=== PATIENT | male | born 1945 | race African-American/Black ===

== ENCOUNTER 2021-11-11 20:38 | Emergency (ER) | payer MEDICARE ==
[2021-11-11] MEDS ORDERED: IPRATROPIUM/ALBUTEROL SULFATE 3 ML AMPUL.NEB IH ONE (20:49)
[2021-11-11] MEDS ORDERED: ALBUTEROL 2.5 MG/3 ML NEBU IH STA (21:30)
[2021-11-11] MEDS ORDERED: IPRATROPIUM 0.02% NEBU 2.5 ML IH STA (21:30)
[2021-11-11] MEDS ORDERED: methylPREDNISolone Sod Succinate 125 MG/2 ML INJ IV ONE (21:32)
--- NOTE | 2021-11-11 21:37 | Emergency Department Report ---
ED General Adult HPI - General Chief complaint: Dyspnea/Respdistress Stated complaint: COPD EXACERBATION Time Seen by Provider: 11/11/21 21:25 Source: patient, family (daughter) Mode of arrival: Wheelchair Limitations: No Limitations - History of Present Illness Initial comments: Patient presents with complaints of SOB @ rest and on exertion x 3 days. E ndorses PND. Denies orthopnea, chest pain, palpitations, diaphoresis, leg swelling, pain in his calves, recent travel, immobilization, surgery, hospitalization, sex HRT use. Has a hx of COPD. Is not on home O2. - Related Data Previous Rx's Medication Instructions Recorded Last Taken Type Albuterol Mdi (or & Nicu Only) 2 puff IH QID PRN #1 inhalation 12/13/15 Unknown Rx [ProAir HFA Inhaler] Benzonatate [Tessalon Perles] 100 mg PO Q8HR #20 capsule 12/13/15 Unknown Rx predniSONE [Deltasone] 20 mg PO BID #10 tab 12/13/15 Unknown Rx Albuterol Sulfate [Proair 90 mcg IH Q4HR PRN #2 aer.pow.ba 09/10/16 Unknown Rx Respiclick] Benzonatate [Tessalon Perles] 100 mg PO Q8HR PRN #30 capsule 09/10/16 Unknown Rx Ipratropium [place] [Atrovent Hfa] 12.9 gm IH Q4HR #2 hfa.aer.ad 09/10/16 Unknown Rx predniSONE [Deltasone] 2 tab PO QDAY 5 Days #10 tab 11/12/21 Unknown Rx Allergies Allergy/AdvReac Type Severity Reaction Status Date / Time No Known Allergies Allergy Verified 12/12/15 21:19 ED Review of Systems ROS: Stated complaint: COPD EXACERBATION Other details as noted in HPI Comment: All other systems reviewed and negative Constitutional: denies: chills, fever ED Past Medical Hx - Past Medical History Hx Hypertension: Yes Hx COPD: Yes Additional medical history: Cholestrol - Social History Smoking Status: Current Every Day Smoker Substance Use Type: Alcohol - Medications Home Medications: Home Medications Medication Instructions Recorded Confirmed Last Taken Type Albuterol Mdi (or & Nicu Only) 2 puff IH QID PRN #1 inhalation 12/13/15 Unknown Rx [ProAir HFA Inhaler] Benzonatate [Tessalon Perles] 100 mg PO Q8HR #20 capsule 12/13/15 Unknown Rx predniSONE [Deltasone] 20 mg PO BID #10 tab 12/13/15 Unknown Rx Albuterol Sulfate [Proair 90 mcg IH Q4HR PRN #2 aer.pow.ba 09/10/16 Unknown Rx Respiclick] Benzonatate [Tessalon Perles] 100 mg PO Q8HR PRN #30 capsule 09/10/16 Unknown Rx Ipratropium [place] [Atrovent Hfa] 12.9 gm IH Q4HR #2 hfa.aer.ad 09/10/16 Unknown Rx predniSONE [Deltasone] 2 tab PO QDAY 5 Days #10 tab 11/12/21 Unknown Rx ED Physical Exam - General Limitations: Language Barrier (daughter interpreting) General appearance: alert, in no apparent distress - Head Head exam: Present: atraumatic, normocephalic - Eye Eye exam: Present: PERRL, EOMI - ENT ENT exam: Present: mucous membranes moist, other (airway patent) - Neck Neck exam: Present: other (supple; no JVD) - Respiratory Respiratory exam: Present: other (fair air entry, prolonged expiratory phase, diffuse inspiratory and expiratory wheezes, no use of GIRMA) - Cardiovascular Cardiovascular Exam: Present: regular rate. Absent: rubs, gallop - GI/Abdominal GI/Abdominal exam: Present: soft, normal bowel sounds. Absent: distended, tenderness - Extremities Exam Extremities exam: Present: other (no lower extremity edema; non tender calves; neg Jorge's sign bilaterally) - Back Exam Back exam: Present: full ROM. Absent: tenderness - Neurological Exam Neurological exam: Present: alert, oriented X3, CN II-XII intact. Absent: motor sensory deficit - Skin Skin exam: Present: warm, normal color ED Course Vital Signs 11/11/21 11/12/21 11/12/21 20:42 00:57 01:06 Temperature 97.7 F 97.8 F Pulse Rate 108 H 90 87 Respiratory 20 16 17 Rate Blood Pressure 153/80 Blood Pressure 116/57 [Left] O2 Sat by Pulse 95 99 98 Oximetry 11/12/21 11/12/21 11/12/21 01:15 01:31 01:45 Temperature Pulse Rate 84 86 94 H Respiratory 16 15 19 Rate Blood Pressure 111/58 115/54 126/76 Blood Pressure [Left] O2 Sat by Pulse 98 99 95 Oximetry 11/12/21 11/12/21 11/12/21 02:01 02:16 02:23 Temperature 97.8 F Pulse Rate 98 H 98 H Respiratory 16 12 Rate Blood Pressure 113/57 Blood Pressure 134/59 [Left] O2 Sat by Pulse 91 93 95 Oximetry ED Medical Decision Making - Lab Data Result diagrams: 11/11/21 21:59 11/11/21 21:59 Laboratory Tests 11/11/21 11/11/21 21:59 21:59 WBC 8.9 RBC 4.95 Hgb 14.6 Hct 43.8 MCV 88 MCH 29 MCHC 33 RDW 14.4 Plt Count 324 Lymph % (Auto) 23.6 [place] % (Auto) 9.4 H Eos % (Auto) 8.9 H Baso % (Auto) 0.5 Lymph # (Auto) 2.1 [place] # (Auto) 0.8 Eos # (Auto) 0.8 H Baso # (Auto) 0.0 Seg Neutrophils % 57.6 Seg Neutrophils # 5.1 Sodium 133 L Potassium 4.4 Chloride 97.3 L Carbon Dioxide 21 L Anion Gap 19 BUN 23 H Creatinine 1.3 Estimated GFR 54 BUN/Creatinine Ratio 18 Glucose 110 H Calcium 9.1 Total Bilirubin 0.30 AST 29 ALT 23 Alkaline Phosphatase 79 Troponin T < 0.010 NT-Pro-B Natriuret Pep 43.38 Total Protein 7.2 Albumin 4.7 Albumin/Globulin Ratio 1.9 CXR: no acute cardiopulmonary process EKG: HR 84, SR, nml DE, narrow QRS, no significant ST deflections from isoelectric liune in contiguous leads - Medical Decision Making Diff dz: likely 2/2 COPD exacerbation. Pneumonia, pneumothorax ruled out. ACS, PE unlikely. Unable to r/o COVID-19 as testing is not done at this faciulity overnight (not even swabs collected) per ancillary staff. Received solumedrol 125 mg IV x 1,. albuterol 10mg neb x 1, ipratropium 1 mg neb x 1. Lungs with good air entry, nml I:E, CTAB, no use of GIRMA; RR 18; POx 98% on RA. Critical care attestation.: If time is entered above; I have spent that time in minutes in the direct care of this critically ill patient, excluding procedure time. ED Disposition Clinical Impression: COPD exacerbation Disposition: 01 HOME / SELF CARE / HOMELESS Is pt being admited?: No Does the pt Need Aspirin: No Condition: Stable Instructions: Chronic Obstructive Pulmonary Disease, Chronic Obstructive Pulmonary Disease (ED) Additional Instructions: Get tested for COVID-19 at your closest [facility] or [facility] as soon as possible (later today). Follow up with your regular doctor within 2 - 4 days. Return to the ER if your symptoms worsen. Prescriptions: predniSONE [Deltasone] 2 tab PO QDAY 5 Days #10 tab Referrals: MATTIE WASHINGTON MD [Primary Care Provider] - 3-5 Days Time of Disposition: 01:55
--- NOTE | 2021-11-11 22:18 | XRay Report ---
CHEST 1 VIEW 11/11/2021 9:49 PM INDICATION / CLINICAL INFORMATION: SOB. Wheezing for 2 days. History of COPD. COMPARISON: 2 views of the chest from 09/09/2016. FINDINGS: SUPPORT DEVICES: None. HEART / MEDIASTINUM: No significant abnormality. LUNGS / PLEURA: No significant pulmonary abnormality. No significant pleural effusion. No pneumothora x. ADDITIONAL FINDINGS: No significant additional findings. IMPRESSION: 1. No acute abnormality of the chest. Signer Name: Nikolas Clark MD Signed: 11/11/2021 10:13 PM Workstation Name: [id number]
[2021-11-11 23:58] LABS: Basophils % (Auto) 0.5 % (0.0-1.8); Eosinophils # (Auto) 0.8 K/mm3 (0.0-0.4); Eosinophils % (Auto) 8.9 % (0.0-4.3); Hematocrit 43.8 % (35.5-45.6); Hemoglobin 14.6 gm/dl (11.8-15.2); Lymphocytes # (Auto) 2.1 K/mm3 (1.2-5.4); Lymphocytes % (Auto) 23.6 % (13.4-35.0); Mean Corpuscular HGB Conc 33 % (32-34); Mean Corpuscular Volume 88 fl (84-94); Monocytes # (Auto) 0.8 K/mm3 (0.0-0.8); Monocytes % (Auto) 9.4 % (0.0-7.3); Platelet Count 324 K/mm3 (140-440); Red Blood Count 4.95 M/mm3 (3.65-5.03); Red Cell Distribution Width 14.4 % (13.2-15.2)
[2021-11-12 00:16] LABS: Alanine Aminotransferase 23 units/L (7-56); Albumin 4.7 g/dL (3.9-5); BUN/Creatinine Ratio 18; Blood Urea Nitrogen 23 mg/dL (9-20); Calcium 9.1 mg/dL (8.4-10.2); Hemolysis Index 4
[2021-11-12 02:24] VITALS: BP 134/59
--- NOTE | 2021-11-12 10:36 | Electrocardiograph Report ---
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
== END 2021-11-12 02:33 | disposition home or self-care (01) ==
LOC: ED 20:38
DX: J44.1 Chronic obstructive pulmonary disease with (acute) exacerbation (principal); F17.200 Nicotine dependence, unspecified, uncomplicated; F10.20 Alcohol dependence, uncomplicated; I10 Essential (primary) hypertension
CPT/HCPCS: 36415; 71045; 80053; 83880; 84484; 85025; 93005; 94640; 96374; 99284; J2930